=== PATIENT | female | born 1960 | race Caucasian/White ===

== ENCOUNTER 2017-05-11 10:03 | Emergency (ER) | payer OTHER ==
[2017-05-11 10:22] VITALS: BP 119/82
[2017-05-11] MEDS ORDERED: LIDOCAINE 1% 2 ML VIAL ONE (11:44)
--- NOTE | 2017-05-11 11:52 | ED Physician Documentation ---
PD HPI UPPER EXT INJURY - Stated complaint Stated Complaint: LT FINGER LAC - Chief complaint Chief Complaint: Laceration - History obtained from History obtained from: Patient - History of Present Illness Location: Left, Finger (thumb) Type of injury: Laceration Where injury occurred: Work Timing - onset: Today Timing - duration: Minutes Timing - details: Abrupt onset, Still present Improved by: Rest, Immobilization Contributing factors: No: Anticoagulated Similar symptoms before: Has not had sx before Recently seen: Not recently seen - Additonal information Additional information: 56-year-old female was cutting some calixto at work today when she sliced the tip of her thumb. Review of Systems Constitutional: denies: Fever Eyes: denies: Decreased vision Ears: denies: Ear pain Nose: denies: Congestion Respiratory: denies: Cough GI: denies: Vomiting Skin: reports: Laceration (s) PD PAST MEDICAL HISTORY - Past Medical History Past Medical History: No - Past Surgical History Past Surgical History: Yes Ortho: Other - Present Medications Home Medications: Ambulatory Orders Medication Instructions Recorded Confirmed No Known Home Medications [No 05/11/17 05/11/17 Known Home Medications] - Allergies Allergies/Adverse Reactions: Allergies Allergy/AdvReac Type Severity Reaction Status Date / Time Penicillins Allergy Hives Verified 05/11/17 10:22 - Social History Does the pt smoke?: Yes Smoking Status: Current every day smoker Does the pt drink ETOH?: Yes ETOH Use: Liquor Does the pt have substance abuse?: No - Immunizations Immunizations are current?: Yes - POLST Patient has POLST: No PD ED PE NORMAL - Vitals Vital signs reviewed: Yes (hypertensive ) - General General: No acute distress, Well developed/nourished - HEENT HEENT: Atraumatic, PERRL, EOMI - Neck Neck: Supple, no meningeal sign - Respiratory Respiratory: No respiratory distress - Extremities Extremities: No deformity, No edema, Other (There is a 1.5cm laceration to the left thumb tip that is clean. ) - Neuro Neuro: No motor deficit, No sensory deficit Eye Opening: Spontaneous Motor: Obeys Commands Verbal: Oriented GCS Score: 15 - Psych Psych: Normal mood, Normal affect Results - Vitals Vitals: Vital Signs - 24 hr 05/11/17 10:18 Temperature 36.3 C L Heart Rate 84 Respiratory 18 Rate Blood Pressure 119/82 H O2 Saturation 97 Oxygen O2 Source Room air Procedures - Laceration (location) left thumb Length in cm: 1.5 Wound type: Linear, Clean Neurovascular status: Sensory intact, Motor intact, Vascular intact Anesthesia: Lidocaine 1% Wound Preparation: Hibiclens, Irrigated copiously NS, Wound explored, To the base Skin layer closure: Nylon, Interrupted, Size #-0 - enter number (5-0), Sutures - enter # (3) Other: Patient tolerated well, No complications, Neurovascular intact, Dressing applied, Tetanus UTD Complexity: Simple PD MEDICAL DECISION MAKING - ED course Complexity details: considered differential, d/w patient ED course: 56-year-old female with a simple laceration to her left thumb is sutured. Departure - Departure Disposition: 01 Home, Self Care Clinical Impression: Laceration of thumb Qualifiers: Encounter type: initial encounter Damage to nail status: without damage Foreign body presence: without foreign body Laterality: left Qualified Code(s): S61.012A - Laceration without foreign body of left thumb without damage to nail , initial encounter Instructions: ED Laceration Hand Follow-Up: Kirsten Bland ARNP [Primary Care Provider] - Comments: sutures out in 7-10 days Today in the Emergency Department your blood pressure was elevated. This can happen from the stress of the visit itself, from a current illness or circumstance or from uncontrolled hypertension. If you take blood pressure medications take your usual mediations, have your blood pressure re-checked in an appropriate setting and follow up any elevation with your primary care doctor.
[2017-05-11] MEDS ORDERED: BACITRACIN OINT TOP ONE (12:02)
== END 2017-05-11 12:03 | disposition home or self-care (01) ==
LOC: ED 10:03
DX: S61.012A Laceration without foreign body of left thumb without damage to nail, initial encounter (principal); W26.0XXA Contact with knife, initial encounter; Y92.89 Other specified places as the place of occurrence of the external cause; Y99.0 Civilian activity done for income or pay; F17.200 Nicotine dependence, unspecified, uncomplicated; R03.0 Elevated blood-pressure reading, without diagnosis of hypertension
CPT/HCPCS: 12001; 99283; A9270

== ENCOUNTER 2017-05-28 11:00 | Outpatient (CLI) | payer OTHER ==
[2017-05-28 19:47] LABS: ALBUMIN/GLOBULIN RATIO 1.4 (1.0-2.2); BILIRUBIN,TOTAL 0.5 mg/dL (0.2-1.0); BUN - BLOOD UREA NITROGEN 17 mg/dL (6-20); CALCIUM 9.6 mg/dL (8.5-10.3); CARBON DIOXIDE - CO2 26 mmol/L (21-32); CHLORIDE 103 mmol/L (101-111); CHOL/HDL RATIO 4.2 (<4.4); CHOLESTEROL 294 mg/dL; GFR - MDRD 58 (>89); GLUCOSE 81 mg/dL (70-100); HDL CHOLESTEROL 70 mg/dL; LDL/HDL RATIO 2.6 (<4.4); POTASSIUM 4.3 mmol/L (3.5-5.0); SODIUM 140 mmol/L (135-145); TOTAL PROTEIN 7.1 g/dL (6.7-8.2); TRIGLYCERIDES 195 mg/dL; VLDL CHOLESTEROL 39 mg/dL
[2017-05-28 19:59] LABS: BASOPHILS # (AUTO) 0.1 10^3/uL (0.0-0.1); BASOPHILS % (AUTO) 1.2 %; EOSINOPHILS # (AUTO) 0.2 10^3/uL (0.0-0.7); EOSINOPHILS % (AUTO) 3.6 %; HGB - HEMOGLOBIN 14.5 g/dL (12.0-16.0); LYMPHOCYTES # (AUTO) 1.3 10^3/uL (1.5-3.5); LYMPHOCYTES % (AUTO) 31.8 %; MEAN CORPUSCULAR HEMOGLOBIN 32.5 pg (27.0-31.0); MEAN CORPUSCULAR VOLUME 98.2 fL (81.0-99.0); MEAN PLATELET VOLUME 11.2 fL (7.9-10.8); MONOCYTES # (AUTO) 0.4 10^3/uL (0.0-1.0); MONOCYTES % (AUTO) 8.4 %; NEUTROPHILS # (AUTO) 2.3 10^3/uL (1.5-6.6); NUCLEATED RED BLOOD CELLS AUTO 0.1 /100WBC; RED BLOOD COUNT 4.48 10^6/uL (4.20-5.40); RED CELL DISTRIBUTION WIDTH 14.2 % (12.0-15.0); UNCORRECTED WHITE BLOOD COUNT 4.2 x10^3/uL; WHITE BLOOD COUNT 4.2 x10^3/uL (4.8-10.8)
[2017-05-28 20:00] LABS: PLATELET MORPHOLOGY 1+ GIANT PLATELETS (NORMAL)
== END 2017-05-28 11:01 | disposition home or self-care (01) ==
LOC: LAB.N 11:00
PROVIDERS: ATTEND Nurse Practitioner Gerontology
DX: Z13.9 Encounter for screening, unspecified (principal)
CPT/HCPCS: 36415; 80053; 80061; 84443; 85025

== ENCOUNTER 2017-06-24 11:53 | Outpatient (CLI) | payer OTHER ==
--- NOTE | 2017-06-26 09:13 | Mammography Report ---
DATE OF SERVICE: 06/24/2017 DIGITAL SCREENING MAMMOGRAM: 06/24/2017 CLINICAL INDICATION: A 56-year-old, for new baseline. TECHNIQUE: Routine CC and MLO projections were obtained of the breasts. Bilateral laterally exaggera yariel craniocaudal views. FINDINGS: The breasts demonstrate heterogeneously dense fibroglandular parenchyma bilaterally. Coar se and punctate, typically benign calcifications are present. No suspicious masses, clustered microcalcific ations, or regions of architectural distortion are identified. IMPRESSION: BENIGN FINDINGS. RECOMMENDATION: ROUTINE ANNUAL SCREENING UNLESS OTHERWISE CLINICALLY INDICATED. BIRADS CATEGORY 2-BENIGN FINDINGS. STANDARD QUALIFYING STATEMENTS: 1. This examination was reviewed with the aid of Computer-Aided Detection (CAD). 2. A negative or benign imaging report should not delay biopsy if clinically suspicious findings are present. Consider surgical consultation if warranted. More than 5% of cancers are not identified by imaging. 3. Dense breasts may obscure an underlying neoplasm. TD: 06/26/2017 10:12
== END 2017-06-24 11:54 | disposition home or self-care (01) ==
LOC: DI.N 11:53
PROVIDERS: ATTEND Nurse Practitioner Gerontology
DX: Z12.31 Encounter for screening mammogram for malignant neoplasm of breast (principal)
CPT/HCPCS: 77067

== ENCOUNTER 2019-01-30 08:00 | Outpatient (CLI) | payer OTHER ==
[2019-01-30 18:25] LABS: HGB - HEMOGLOBIN 13.7 g/dL (12.0-16.0); MEAN CORPUSCULAR HEMOGLOBIN 31.1 pg (27.0-31.0); MEAN CORPUSCULAR HGB CONC 30.9 g/dL (32.0-36.0); MEAN CORPUSCULAR VOLUME 100.7 fL (81.0-99.0); MEAN PLATELET VOLUME 12.7 fL (7.9-10.8); RED BLOOD COUNT 4.4 10^6/uL (4.20-5.40); RED CELL DISTRIBUTION WIDTH 12.5 % (12.0-15.0); WHITE BLOOD COUNT 4.2 x10^3/uL (4.8-10.8)
[2019-01-30 18:50] LABS: CRP - C-REACTIVE PROTEIN < 1.0 mg/dL (0-1.0)
[2019-01-30 18:51] LABS: URIC ACID 6.2 mg/dL (2.6-7.2)
[2019-01-30 18:56] LABS: RHEUMATOID FACTOR NEGATIVE (Negative)
[2019-02-02 11:55] LABS: ANA SCREEN NEGATIVE (NEGATIVE)
== END 2019-01-30 23:59 | disposition home or self-care (01) ==
LOC: LAB.N 08:00
PROVIDERS: ATTEND Family Medicine
DX: M25.572 Pain in left ankle and joints of left foot (principal)
CPT/HCPCS: 36415; 84550; 85027; 85651; 86038; 86140; 86200; 86430

== ENCOUNTER 2019-01-30 11:11 | Outpatient (CLI) | payer OTHER ==
--- NOTE | 2019-02-01 02:35 | XRAY Report ---
Reason: JOINT PAIN Procedure Date: 01/30/2019 Accession Number: [id number] / [id number] Procedure: XRN - Ankle 3 View LT CPT Code: FULL RESULT: EXAM: LEFT ANKLE RADIOGRAPHY EXAM DATE: 01/30/2019 11:36 AM. CLINICAL HISTORY: JOINT PAIN. Pain swelling. COMPARISON: None. TECHNIQUE: 3 views. FINDINGS: Small bone spurs off the medial malleolus. Tiny more chronic appearing calcifications seen distal to the lateral malleolus. No evidence for acute fracture. No subluxation. There appears to be anterior ankle soft tissue swelling. Calcaneal bone spurs. IMPRESSION: No evidence for acute fracture. There appears to be anterior ankle soft tissue swelling. See above. RADIA
== END 2019-01-30 11:12 | disposition home or self-care (01) ==
LOC: DI.N 11:11
PROVIDERS: ATTEND Family Medicine
DX: M25.572 Pain in left ankle and joints of left foot (principal); M77.32 Calcaneal spur, left foot

== ENCOUNTER 2019-07-27 18:46 | Emergency (ER) | payer OTHER ==
--- NOTE | 2019-07-27 20:22 | XRAY Report ---
Reason: Trauma Procedure Date: 07/27/2019 Accession Number: [id number] / [id number] Procedure: XR - Hand 3 View RT CPT Code: Final Report FULL RESULT: EXAM: RIGHT HAND RADIOGRAPHY EXAM DATE: 07/27/2019 07:49 PM. CLINICAL HISTORY: Fall, pain. COMPARISON: None. TECHNIQUE: 3 views. FINDINGS: Bones: Osteopenia. Nondisplaced oblique fracture through the fifth proximal phalangeal base. Subtle curvilinear lucency through the fifth metacarpal shaft, artifact versus nondisplaced and possibly incomplete fracture. Otherwise unremarkable. Joints: Unremarkable. Soft Tissues: Soft tissue swelling. IMPRESSION: Nondisplaced fifth proximal phalangeal fracture with questionable involvement of fifth metacarpal shaft. RADIA
--- NOTE | 2019-07-27 20:23 | XRAY Report ---
Reason: Trauma Procedure Date: 07/27/2019 Accession Number: [id number] / [id number] Procedure: XR - Wrist 4 View RT CPT Code: Final Report FULL RESULT: EXAM: RIGHT WRIST RADIOGRAPHY EXAM DATE: 07/27/2019 07:50 PM. CLINICAL HISTORY: Trauma, pain. COMPARISON: WRIST 3 VIEW RT 03/23/2016 12:10 PM. TECHNIQUE: 4 views. FINDINGS: Bones: Osteopenia. See separate report for fifth digit findings. Otherwise unremarkable. Joints: Unremarkable. Soft Tissues: Soft tissue swelling. IMPRESSION: Soft tissue swelling. RADIA
[2019-07-27] MEDS ORDERED: HYDROcod/ACETAM 5/325 MG TABLET PO STA (20:25)
--- NOTE | 2019-07-27 20:27 | ED Physician Documentation ---
History of Present Illness - Stated complaint Stated Complaint: RT ARM INJ - Chief complaint Chief Complaint: Trauma Ext - History obtained from History obtained from: Patient, Family - History of Present Illness Timing: Today Pain level max: 6 Pain level now: 5 - Additonal information Additional information: 58-year-old female, right-handed. She states that she tripped and fell over a curb at work today, landing on the right hand. Has pain at the right fifth digit and right wrist. Worse with movement and better with rest. She also struck the side of her face, no loss of consciousness. No vomiting. States is not having pain there. No other injuries. She is not on blood thinners. Review of Systems Constitutional: denies: Fever GI: denies: Abdominal Pain, Vomiting Musculoskeletal: denies: Neck pain, Back pain Neurologic: denies: Focal weakness, Confused, Headache PD PAST MEDICAL HISTORY - Past Medical History Past Medical History: No Cardiovascular: None Respiratory: None Neuro: None Endocrine/Autoimmune: None GI: None [employer] IN [employer]SP[employer]ER: None : None HEENT: None Psych: None Musculoskeletal: None Derm: None - Past Surgical History Past Surgical History: Yes Ortho: Other - Present Medications Home Medications: Ambulatory Orders Medication Instructions Recorded Confirmed Hydrocodone/Acetaminophen 1 - 2 each PO Q6H PRN #14 tablet 07/27/19 [Hydrocodon-Acetaminophen 5-325] - Allergies Allergies/Adverse Reactions: Allergies Allergy/AdvReac Type Severity Reaction Status Date / Time Penicillins Allergy Hives Verified 05/11/17 10:22 - Social History Does the pt smoke?: Yes Smoking Status: Current every day smoker Does the pt drink ETOH?: Yes Does the pt have substance abuse?: No - Immunizations Immunizations are current?: Yes - POLST Patient has POLST: No PD ED PE NORMAL - Vitals Vital signs reviewed: Yes - General General: Alert and oriented X 3, No acute distress - HEENT HEENT: Moist mucous membranes - Derm Derm: Warm and dry - Extremities Extremities: Other (Tender to palpation over the right fifth metacarpal. Mild swelling and ecchymosis. Nontender over the wrist. No snuffbox tenderness. Otherwise normal examination of the right hand, wrist, forearm.) - Neuro Neuro: Alert and oriented X 3, tag and label cutter 2-12 intact, No motor deficit, No sensory deficit, Normal speech Eye Opening: Spontaneous Motor: Obeys Commands Verbal: Oriented GCS Score: 15 - Psych Psych: Normal mood, Normal affect Results - Vitals Vitals: Vital Signs - 24 hr 07/27/19 18:55 Temperature 36.8 C Heart Rate 73 Respiratory 18 Rate Blood Pressure 133/88 H O2 Saturation 99 Oxygen O2 Source Room air - Rads (name of study) Right hand x-ray Radiology: Prelim report reviewed, EMP read contemporaneously, See rad report (Nondisplaced fifth proximal phalangeal fracture with questionable involvement of fifth metacarpal shaft. ) Right wrist x-ray Radiology: Prelim report reviewed, EMP read contemporaneously, See rad report (Soft tissue swelling. ) Procedures - Splint (location) R hand Splint applied by: Physician, Tech Type of splint: Fiberglass, Short arm, Ulnar gutter Other: Patient tolerated well, No complications, Neurovascular intact PD MEDICAL DECISION MAKING - ED course Complexity details: reviewed results, re-evaluated patient, considered differential, d/w patient ED course: Patient with a right fifth proximal phalanx fracture. Placed in an ulnar gutter splint. Pain well controlled with Vicodin. Neurovascularly intact. No evidence of occult scaphoid fracture. Patient will follow-up with orthopedics. She is right-handed. Neurovascularly intact. Patient counseled regarding signs and symptoms for which I believe and urgent re-evaluation would be necessary. Patient with good understanding of and agreement to plan and is comfortable going home at this time This document was made in part using voice recognition software. While efforts are made to proofread this document, sound alike and grammatical errors may occur. Departure - Departure Disposition: 01 Home, Self Care Clinical Impression: Proximal phalanx fracture of finger Qualifiers: Encounter type: initial encounter Finger: little finger Fracture type: closed Fracture alignment: nondisplaced Laterality: right Qualified Code(s): S62.646A - Nondisplaced fracture of proximal phalanx of right little finger, initial encounter for closed fracture Condition: Good Instructions: ED Fx Finger Closed Follow-Up: Kirsten Bland ARNP [Primary Care Provider] - [facility] [Provider Group] - Within 1 week Prescriptions: Hydrocodone/Acetaminophen [Hydrocodon-Acetaminophen 5-325] 1 - 2 each PO Q6H PRN #14 tablet PRN Reason: pain Comments: Return if you worsen. Elevate the area whenever possible. Follow-up with orthopedics for repeat evaluation in 1 week. Do not drink alcohol or drive while on narcotic pain medicine. Note that many narcotic pain relievers also contain tylenol/acetaminophen. Please ensure that your total dose of acetaminophen from all sources does not exceed 3 grams (3000mg) per day. You may constipated on this medication, take a stool softener such as "Colace" twice a day while you are on it. Also recommend a [id number] laxative such as senna or MiraLAX any day that you do not have a bowel movement. If you received narcotic pain medication in the emergency department, do not drive or operate machinery for the next 24 hours. Forms: Activity restrictions
[2019-07-27 20:48] VITALS: BP 138/87
== END 2019-07-27 20:53 | disposition home or self-care (01) ==
LOC: ED 18:46
DX: S62.646A Nondisplaced fracture of proximal phalanx of right little finger, initial encounter for closed fracture (principal); W01.0XXA Fall on same level from slipping, tripping and stumbling without subsequent striking against object, initial encounter; Y92.89 Other specified places as the place of occurrence of the external cause; Y99.0 Civilian activity done for income or pay; F17.200 Nicotine dependence, unspecified, uncomplicated
CPT/HCPCS: 1040M; 29125; 73110; 73130; 99283; 99284; A9270

== ENCOUNTER 2021-01-04 13:38 | Outpatient (CLI) | payer OTHER ==
[2021-01-04 17:43] LABS: BASOPHILS % (AUTO) 0.5 %; EOSINOPHILS # (AUTO) 0.1 10^3/uL (0.0-0.7); EOSINOPHILS % (AUTO) 2.5 %; HCT - HEMATOCRIT 47.4 % (37.0-47.0); HGB - HEMOGLOBIN 15.1 g/dL (12.0-16.0); LYMPHOCYTES # (AUTO) 1.6 10^3/uL (1.5-3.5); LYMPHOCYTES % (AUTO) 35.8 %; MEAN CORPUSCULAR HEMOGLOBIN 32.5 pg (27.0-31.0); MEAN CORPUSCULAR HGB CONC 31.9 g/dL (32.0-36.0); MEAN CORPUSCULAR VOLUME 102.2 fL (81.0-99.0); MEAN PLATELET VOLUME 12.8 fL (7.9-10.8); MONOCYTES # (AUTO) 0.3 10^3/uL (0.0-1.0); MONOCYTES % (AUTO) 7.8 %; NEUTROPHILS # (AUTO) 2.3 10^3/uL (1.5-6.6); NEUTROPHILS % (AUTO) 53.2 %; PLT - PLATELET COUNT 152 10^3/uL (130-450); RED BLOOD COUNT 4.64 10^6/uL (4.20-5.40); RED CELL DISTRIBUTION WIDTH 12.6 % (12.0-15.0); WHITE BLOOD COUNT 4.4 x10^3/uL (4.8-10.8)
[2021-01-04 18:02] LABS: ALBUMIN 4.4 g/dL (3.2-5.5); ALBUMIN/GLOBULIN RATIO 1.7 (1.0-2.2); ALKALINE PHOSPHATASE 72 IU/L (42-121); ALT ALANINE AMINOTRANSFERASE 17 IU/L (10-60); AST ASPARTATE AMINOTRANSFERASE 21 IU/L (10-42); BILIRUBIN,TOTAL 0.7 mg/dL (0.2-1.0); BUN - BLOOD UREA NITROGEN 13 mg/dL (6-20); CALCIUM 9.3 mg/dL (8.5-10.3); CARBON DIOXIDE - CO2 28 mmol/L (21-32); CHLORIDE 104 mmol/L (101-111); CHOL/HDL RATIO 4.3 (<4.4); CHOLESTEROL 297 mg/dL; CRP - C-REACTIVE PROTEIN 1.1 mg/dL (0-1.0); GFR - MDRD 57 (>89); GLUCOSE 92 mg/dL (70-100); HDL CHOLESTEROL 69 mg/dL; LDL CHOLESTEROL,CALCULATED 179 mg/dL; LDL/HDL RATIO 2.6 (<4.4); POTASSIUM 4.3 mmol/L (3.5-5.0); SODIUM 140 mmol/L (135-145); TRIGLYCERIDES 244 mg/dL; URIC ACID 5.8 mg/dL (2.6-7.2); VLDL CHOLESTEROL 49 mg/dL
== END 2021-01-04 13:39 | disposition home or self-care (01) ==
LOC: LAB.N 13:38
PROVIDERS: ATTEND Nurse Practitioner
DX: M25.572 Pain in left ankle and joints of left foot (principal); E78.5 Hyperlipidemia, unspecified
CPT/HCPCS: 36415; 80053; 80061; 83721; 84550; 85025; 85651; 86140

== ENCOUNTER 2021-01-04 13:43 | Outpatient (CLI) | payer OTHER ==
--- NOTE | 2021-01-04 14:25 | XRAY Report ---
PROCEDURE: Ankle 3 View LT INDICATIONS: L ANKLE PX TECHNIQUE: 3 views of the ankle were acquired. COMPARISON: None FINDINGS: Bones: No fractures or dislocations. Ankle mortise is normally aligned. No suspicious bony lesions . Soft tissues: No tibiotalar joint effusion. Achilles tendon appears normal. IMPRESSION: No trauma found. Mild Achilles tendon insertion spurring indicating presence of calcific tendinitis in that area. Reviewed by: Arnaldo Montalvo MD on 01/04/2021 2:24 PM PDT Approved by: Arnaldo Montalvo MD on 01/04/2021 2:24 PM PDT Station ID: [id number]
== END 2021-01-04 13:44 | disposition home or self-care (01) ==
LOC: DI.N 13:43
PROVIDERS: ATTEND Nurse Practitioner
DX: M76.62 Achilles tendinitis, left leg (principal); M25.572 Pain in left ankle and joints of left foot; E78.5 Hyperlipidemia, unspecified
CPT/HCPCS: 36415; 80053; 80061; 83721; 84550; 85025; 85651; 86140